=== PATIENT | female | born 2000 | race Two or more races ===

== ENCOUNTER 2024-01-17 10:43 | Outpatient (CLI) | payer OTHER ==
[2024-01-17 12:05] LABS: PH,URINE 6.5 (5.0-8.0); URINE APPEARANCE Clear; URINE BILIRRUBIN Negative (NEGATIVE); URINE BLOOD Negative; URINE COLOR Yellow; URINE GLUCOSE Negative (NEGATIVE); URINE KETONE 15 (NEGATIVE); URINE LEUKOCYTE Trace; URINE NITRATE Negative; URINE PROTEIN Negative (NEGATIVE)
[2024-01-17 12:08] LABS: HEMATOCRIT 39.8 % (36.0-45.00); HEMOGLOBIN 13.5 g/dL (12.0-15.00); MEAN CELL VOLUME 87.9 fL (80.00-100.00); MEAN CORPUSCULAR HEMOGLOBIN 29.9 pg (27.00-32.0); PLATELET COUNT 169 K/uL (150-450); RED BLOOD COUNT 4.53 M/uL (4.00-6.00); RED CELL DISTRIBUTION WIDTH 13.5 % (11.5-14.5)
[2024-01-17 12:09] LABS: URINE BACTERIA 520.3 uL (0.0-1933); URINE EPITHELIAL CELLS 14.5 uL (0.0-38.8); URINE RBC 2.1 uL (0.0-20.8); URINE WBC 8.3 uL (0.0-23.2)
[2024-01-17 12:54] LABS: ALBUMIN 4.2 gm/dL (3.4-5.0); BILIRUBIN TOTAL 0.74 mg/dL (0.3-1.2); CHOL HDL RATIO 2.5 (0-5.0); CREATININE SERUM 0.66 mg/dL (0.55-1.02); GFR 111.99; GLOBULINA 3.6 G/DL (2.4-3.5); POTASSIUM 3.85 mEq/L (3.5-5.1); T4 FREE 1.2 NG/ML (0.76-1.46); TOTAL PROTEIN 7.8 gm/dL (6.4-8.2); TSH 0.428 uIU/mL (0.358-3.74)
[2024-01-20 05:05] LABS: hav igm Negative (Negative); hcv Non Reactive (Non Reactive); hep b c Negative (Negative)
== END 2024-01-17 10:50 | disposition home or self-care (01) ==
LOC: LAB 10:43
DX: D64.9 Anemia, unspecified (principal); E78.5 Hyperlipidemia, unspecified; A50.1 Early congenital syphilis, latent; Z11.4 Encounter for screening for human immunodeficiency virus [HIV]; N80.9 Endometriosis, unspecified; E03.8 Other specified hypothyroidism; E11.9 Type 2 diabetes mellitus without complications; E55.9 Vitamin D deficiency, unspecified; R10.2 Pelvic and perineal pain; N39.0 Urinary tract infection, site not specified; N93.8 Other specified abnormal uterine and vaginal bleeding